=== PATIENT | female | born 1985 | race African-American/Black ===

== ENCOUNTER 2016-05-02 08:13 | Emergency (ER) | payer MEDICAID ==
[~2016-05-02] VITALS: Ht 157.5 cm; Wt 82.0 kg
[2016-05-02 08:16] VITALS: BP 120/79; PULSE 67; RESP 16; TEMP 98.6; O2SAT 98
--- NOTE | 2016-05-02 08:31 | PD ---
HPI Chief Complaint: Foreign Body Time Seen by Provider: 08:21 Travel History International Travel<30 days: No Contact w/Intl Traveler<30days: No Traveled to known affect area: No History of Present Illness HPI 30-year-old female who presents to emergency room for evaluation of foreign body in vagina. Patient reports that she had sexual intercourse yesterday, reports that a condom was lost after intercourse last night. She as well as her fianc try to retrieve this condom, they were unable to find this condom. Patient here for condom removal PFS Past Medical History Hx Anticoagulant Therapy: No Diabetes: No ?: Not Social History Alcohol Use: Yes (EVERY OTHER DAY) Tobacco Use: Yes (BLACK AND MILDS) Substance Use: No Allergies-Medications (Allergen,Severity, Reaction): Coded Allergies: No Known Allergies (Unverified , 05/02/16) Reported Meds & Prescriptions Reported Meds & Active Scripts Active No Active Prescriptions or Reported Medications Review of Systems General / Constitutional: No: Fever Eyes: No: Visual changes HENT: No: Headaches Cardiovascular: No: Chest Pain or Discomfort Respiratory: No: Shortness of Breath Gastrointestinal: No: Abdominal Pain Genitourinary: No: Dysuria Musculoskeletal: No: Pain Skin: No Rash Neurologic: No: Weakness Psychiatric: No: Depression Endocrine: No: Polydipsia Hematologic/Lymphatic: No: Easy Bruising Physical Exam Narrative GENERAL: Well-nourished, well-developed patient. SKIN: Warm and dry. HEAD: Normocephalic. NECK: Supple, trachea midline. CARDIOVASCULAR: Regular rate and rhythm without murmurs, gallops, or rubs. RESPIRATORY: Breath sounds equal bilaterally. No accessory muscle use. GASTROINTESTINAL: Abdomen soft, non-tender, nondistended. : Pelvic exam performed with RN at bedside, patient with no foreign body, no condom found on pelvic exam, no discharge or bleeding on exam BACK: Nontender without obvious deformity. Data Data Last Documented VS Vital Signs Date Time Temp Pulse Resp B/P Pulse Ox O2 Delivery O2 Flow Rate FiO2 05/02/16 08:16 98.6 67 16 120/79 98 [facility] Medical Decision Making Medical Screen Exam Complete: Yes Emergency Medical Condition: Yes Interpretation(s) Vital Signs Date Time Temp Pulse Resp B/P Pulse Ox O2 Delivery O2 Flow Rate FiO2 05/02/16 08:16 98.6 67 16 120/79 98 Differential Diagnosis FB in Vagina Narrative Course Patient is a 30-year-old female who presents to emergency room for evaluation of condom in vagina. Patient reports that a condom got lost last night after intercourse and she was unable to retrieve it. A pelvic exam was performed with RN at bedside, there is no foreign body, no condom was seen on evaluation during pelvic exam. Patient will follow up with her staff air defense officer and return to ER as needed. Diagnosis Primary Impression: Normal physical exam Patient Instructions: General Instructions Additional Instructions: Return to the emergency room as needed Scripts No Active Prescriptions or Reported Meds Disposition: 01 DISCHARGE HOME Condition: Stable Skyla Salazar DO May 02, 2016 08:31
== END 2016-05-02 08:50 | disposition home or self-care (01) ==
LOC: PHED 08:13
DX: T19.2XXA Foreign body in vulva and vagina, initial encounter (principal)
CPT/HCPCS: 99283

== ENCOUNTER 2016-07-18 14:30 | Emergency (ER) | payer MEDICAID ==
[~2016-07-18] VITALS: Ht 157.5 cm; Wt 82.0 kg
[2016-07-18 14:34] VITALS: BP 134/83; PULSE 78; RESP 16; TEMP 98.2; O2SAT 100
[2016-07-18] MEDS ORDERED: NYSTPOW TOPICAL (15:18)
--- NOTE | 2016-07-18 15:19 | PD ---
HPI Chief Complaint: Pain: Acute or Chronic Time Seen by Provider: 14:50 Travel History International Travel<30 days: No Contact w/Intl Traveler<30days: No Traveled to known affect area: No History of Present Illness HPI 30-year-old female with no significant past medical history presents emergency department for evaluation of a rash under her breast folds. Patient reports rash has been present intermittently for greater than 3-5 months. She has been self treating with baby powder with little relief. She reports that the rash is itchy in nature and at times painful when the skin breaks. Reports symptoms worse with hot weather and sweating. She denies fever, chills, breast pain, or breast mass. She reports no past medical history. No home medications. PFSH Past Medical History Medical History: Denies Significant Hx Hx Anticoagulant Therapy: No Diabetes: No Diminished Hearing: No Tetanus Vaccination: < 5 Years Influenza Vaccination: No ?: Unknown LMP: 06/19/16 Past Surgical History Surgical History: No Previous Surgery Social History Alcohol Use: No Tobacco Use: Yes (1-2 Black & Mild/day) Substance Use: No Allergies-Medications (Allergen,Severity, Reaction): Coded Allergies: No Known Allergies (Unverified , 07/18/16) Reported Meds & Prescriptions Reported Meds & Active Scripts Active No Active Prescriptions or Reported Medications Review of Systems Except as stated in HPI: all other systems reviewed are Neg Physical Exam Narrative GENERAL: Well-nourished, well-developed patient. SKIN: Well demarcated confluent erythematous rash under both breasts folds. No cellulitis. HEAD: Normocephalic. EYES: No scleral icterus. No injection or drainage. NECK: Supple, trachea midline. No JVD or lymphadenopathy. BREAST: No masses. No nipple inversion. No enlarged regional lymph nodes. CARDIOVASCULAR: Regular rate and rhythm without murmurs, gallops, or rubs. RESPIRATORY: Breath sounds equal bilaterally. No accessory muscle use. GASTROINTESTINAL: Abdomen soft, non-tender, nondistended. Data Data Last Documented VS Vital Signs Date Time Temp Pulse Resp B/P Pulse Ox O2 Delivery O2 Flow Rate FiO2 07/18/16 14:34 98.2 78 16 134/83 100 [facility] Medical Decision Making Medical Screen Exam Complete: Yes Emergency Medical Condition: Yes Differential Diagnosis Candidal intertrigo, ectopic dermatitis, psoriasis Narrative Course 30-year-old female with no significant past medical history presents emergency department for evaluation of a painful itchy rash and bilateral breast folds. She reports the rash is present for 3-5 months. She reports the rash waxes and wanes improving at times. She is attempted home remedies of baby powder with little relief. On exam the rash is consistent with candidal skin infection patient will be treated with nystatin powder. Instructed to follow-up with her primary doctor. Diagnosis Primary Impression: Candidal intertrigo Additional Instructions: Plan the powder twice daily to the affected area. Continued use the powder for one week after rash resolves. Try to keep the area clean and dry. Return to emergency department if he developed new worsening symptoms. Follow-up with her primary doctor for recheck. Scripts Nystatin Topical 1 Powd1 Appl TOPICAL DIRECTED #1 CONTAINER Prov:Madina Martinez 07/18/16 Disposition: 01 DISCHARGE HOME Condition: Stable Madina Martinez Jul 18, 2016 15:19
== END 2016-07-18 15:25 | disposition home or self-care (01) ==
LOC: PHEFT 14:30
DX: B37.2 Candidiasis of skin and nail (principal)
CPT/HCPCS: 99283

== ENCOUNTER 2016-07-24 18:57 | Emergency (ER) | payer MEDICAID ==
[~2016-07-24] VITALS: Ht 157.5 cm; Wt 88.5 kg
[~2016-07-24 18:57] MED LIST: NYSTPOW TOPICAL
[2016-07-24 19:12] VITALS: BP 113/70; PULSE 82; RESP 18; TEMP 98.6; O2SAT 97
[2016-07-24] MEDS ORDERED: CLOT1CRE6 TOPICAL (20:11)
--- NOTE | 2016-07-24 20:15 | PD ---
HPI Chief Complaint: Skin Problem Time Seen by Provider: 20:12 Travel History International Travel<30 days: No Contact w/Intl Traveler<30days: No Traveled to known affect area: No History of Present Illness HPI 30-year-old female presents to the emergency room for evaluation of itchy rash to body. Symptoms began one week ago. Patient came to the emergency room one week ago for evaluation of itchy rash localized to underneath her breasts. She was given a prescription for nystatin which she has been using appropriately. Patient states the rash under her breast seems to be improving but since starting the medication it has spread to the rest of her body, especially her upper chest and neck. Patient states itching is severe and worse at night. Her sleeps in the same bed as she does and does not have any symptoms. She has not tried anything [id number] for relief. PFSH Past Medical History Hx Anticoagulant Therapy: No Diabetes: No Diminished Hearing: No ?: Not LMP: NOW Social History Alcohol Use: No Tobacco Use: Yes (1-2 Black & Mild/day) Substance Use: No Allergies-Medications (Allergen,Severity, Reaction): Coded Allergies: No Known Allergies (Unverified , 07/24/16) Reported Meds & Prescriptions Reported Meds & Active Scripts Active Clotrimazole Anti-Fungal Topical (Clotrimazole) 1% Cream 1 Applic TOPICAL BID Nystatin Topical (Nystatin) 1 Powd 1 Appl TOPICAL DIRECTED Review of Systems Except as stated in HPI: all other systems reviewed are Neg Physical Exam Narrative GENERAL: Well-nourished, well-developed female in no acute distress. Afebrile. Ambulatory. SKIN: Focused skin assessment warm/dry. Multiple annular, slightly raised lesions with central clearing and scaling on the chest and neck. There are several smaller lesions throughout the extremities and on the trunk of the body. HEAD: Normocephalic. EYES: No scleral icterus. No injection or drainage. NECK: Supple, trachea midline. No JVD or lymphadenopathy. CARDIOVASCULAR: Regular rate and rhythm without murmurs, gallops, or rubs. RESPIRATORY: Breath sounds equal bilaterally. No accessory muscle use. PSYCHIATRIC: No delusional thought processes. No hallucinations. Data Data Last Documented VS Vital Signs Date Time Temp Pulse Resp B/P Pulse Ox O2 Delivery O2 Flow Rate FiO2 6/19/17 19:12 98.6 82 18 113/70 97 [facility] Medical Decision Making Medical Screen Exam Complete: Yes Emergency Medical Condition: Yes Medical Record Reviewed: Yes Differential Diagnosis Tinea corporis, candidiasis intertrigo, scabies, drug reaction Narrative Course 30-year-old female presents to the emergency room for evaluation of itchy rash to her body for the past week. Patient initially had candidal intertrigo and treated with nystatin. The rash seems to have improved but the new lesions appeared after starting the nystatin. Physical exam reveals multiple annular, slightly raised lesions with central clearing and scaling on the chest and neck. Lesions range in size from 1 mm to 1.5 cm. There are several smaller lesions throughout the extremities and on the trunk of the body. Rash is not bacterial. It does not appear to be scabies or a drug reaction. It is not a viral exanthem. 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 Patient will be treated with clotrimazole and told to follow-up with a furnace mason. She understands and agrees to plan. Diagnosis Primary Impression: Tinea corporis Referrals: [facility] Patient Instructions: General Instructions, Tinea Corporis (ED) Additional Instructions: Rest and drink plenty of fluids. Apply clotrimazole to the affected areas as directed, for up to 2 weeks. Follow-up with a primary care physician. Return to the emergency room for worsening symptoms. Scripts Clotrimazole Topical (Clotrimazole Anti-Fungal Topical)1% Cream1 Applic TOPICAL BID #1 TUBE Ref 0 Prov:Spencer Jarquin MD 07/24/16 Disposition: 01 DISCHARGE HOME Condition: Stable Yamilet Nunez Jul 24, 2016 20:15
== END 2016-07-24 20:26 | disposition home or self-care (01) ==
LOC: PHEFT 18:57
DX: B35.4 Tinea corporis (principal); Z72.0 Tobacco use
CPT/HCPCS: 99283